=== PATIENT | male | born 1980 | race Hispanic/Latino ===

== ENCOUNTER 2022-08-30 17:11 | Emergency (ER) | payer OTHER ==
[~2022-08-30] VITALS: Ht 167.6 cm; Wt 82.6 kg
[2022-08-30 17:20] VITALS: BP 130/93
[2022-08-30] MEDS ORDERED: FLUORESCEIN SODIUM 1 STRIP STRIP OP SCH (20:00)
[2022-08-30] MEDS ORDERED: TETRACAINE HCL 0.5% 15 ML OPHTH SOLN OP SCH (20:00)
[2022-08-30] MEDS ORDERED: TETRACAINE HCL 0.5% 4 ML OPHTH SOLN ONE (20:04)
[2022-08-30] MEDS ORDERED: DIPH,PERTUSS(ACELL),TET VAC/PF 0.5 ML VIAL IM ONE (20:30)
[2022-08-30] MEDS ORDERED: IBUP-1493 PO (22:01)
[2022-08-30] MEDS ORDERED: POLY10DR22 OP (22:01)
[2022-08-30] MEDS ORDERED: IBUPROFEN 800 MG TAB PO ONE (22:30)
[2022-08-30] MEDS ORDERED: TETANUS/DIPHTHERIA TOXOID [ADULT] 0.5 ML VIAL IM ONE (22:30)
== END 2022-08-30 22:34 | disposition home or self-care (01) ==
LOC: EDH 17:11
DX: S05.02XA Injury of conjunctiva and corneal abrasion without foreign body, left eye, initial encounter (principal); H11.002 Unspecified pterygium of left eye; X58.XXXA Exposure to other specified factors, initial encounter; Y93.89 Activity, other specified; Y92.89 Other specified places as the place of occurrence of the external cause; Y99.8 Other external cause status
CPT/HCPCS: 70480; 90471; 90714; 90715

== ENCOUNTER 2023-08-17 16:01 | Emergency (ER) | payer OTHER ==
[~2023-08-17] VITALS: Ht 162.6 cm; Wt 81.6 kg
[~2023-08-17 16:01] MED LIST: IBUP-1493 PO; POLY10DR22 OP
[2023-08-17 16:22] LABS: BASOPHILS # (AUTO) 0.03 K/uL (0.00-0.20); BASOPHILS % (AUTO) 0.4 % (0.0-5.0); EOSINOPHILS # (AUTO) 0.13 K/uL (0.00-0.70); EOSINOPHILS % (AUTO) 1.7 % (0.0-8.0); HEMATOCRIT 45.3 % (42-54); IMMATURE GRANULOCYTE ABSOLUTE 0.02 K/uL (0-1); LYMPHOCYTES # (AUTO) 3.2 K/uL (1.0-4.8); LYMPHOCYTES % (AUTO) 42.5 % (21.0-51.0); MEAN CORPUSCULAR HEMOGLOBIN 29.5 pg (27.0-33.0); MEAN CORPUSCULAR HGB CONC 34.7 g/dL (32.0-36.0); MEAN CORPUSCULAR VOLUME 85.2 fL (79-99); MONOCYTES # (AUTO) 0.6 K/uL (0.1-1.0); NEUTROPHILS # (AUTO) 3.6 K/uL (1.8-7.7); NEUTROPHILS % (AUTO) 47.1 % (40.0-77.0); PLATELET COUNT (AUTO) 216 K/uL (130-400); RED BLOOD CELL COUNT(AUTO) 5.32 MIL/uL (4.50-6.20); RED CELL DISTRIBUTION WIDTH 12.7 % (11.0-15.5); WHITE BLOOD COUNT (AUTO) 7.6 K/uL (4.8-10.8)
[2023-08-17 16:34] LABS: CREATININE 1.1 mg/dL (0.5-1.5); POTASSIUM 3.6 mmol/L (3.5-5.1)
[2023-08-17 16:41] LABS: ALBUMIN 3.8 g/dL (3.5-5.0); BILIRUBIN,TOTAL 0.5 mg/dL (0.2-1.0); TOTAL PROTEIN, SERUM 7.6 g/dL (6.0-8.3)
[2023-08-17] MEDS ORDERED: IBUP-2070 PO (21:54)
[2023-08-17 22:00] VITALS: BP 128/78; PULSE 88; RESP 18; O2SAT 99
[2023-08-17] MEDS ORDERED: IBUPROFEN 800 MG TAB PO STA (22:16)
== END 2023-08-17 22:22 | disposition home or self-care (01) ==
LOC: EDH 16:01
DX: M79.602 Pain in left arm (principal); M79.18 Myalgia, other site; Z79.899 Other long term (current) drug therapy
CPT/HCPCS: 36415; 71045; 80053; 82550; 84484; 85025; 93005

== ENCOUNTER 2025-04-07 14:52 | Emergency (ER) | payer OTHER ==
[~2025-04-07] VITALS: Ht 162.6 cm; Wt 77.1 kg
[~2025-04-07 14:52] MED LIST changes: +IBUP-2070 PO
[2025-04-07 14:53] VITALS: BP 135/74; PULSE 72; RESP 16; TEMP 98.2
--- NOTE | 2025-04-07 14:58 | ERN ---
ED Note History of Present Illness Stated Complaint: LACERATION Chief Complaint: Laceration/Avulsion Time Seen by MD: 14:54 Dictation: 44-YEAR-OLD MALE STATES HE WAS WORKING NEAR A CAR WHEN A MIRROR BROKE AND IT CUT HIS DORSUM RIGHT HAND1 HOUR PRIOR TO ARRIVAL. HE WRAPPED IT WITH A PRESSURE DRESSING LAST TETANUS SHOT IS UNKNOWN. NO PRIMARY CARE DOCTOR NO ALLERGIES HE HAS NOT TAKEN ANYTHING PRIOR TO ARRIVAL FOR PAIN. Allergies: Coded Allergies: No Known Allergies (Unverified Allergy, Unknown, 08/30/22) Home Meds Active Scripts Ibuprofen (Ibuprofen 800 mg Tab) 800 Mg Tab, 800 MG PO Q8H PRN for fever or pain, #30 TAB 0 Refills Prov:NEGRITO LENTZ NP 04/07/25 Cephalexin (Cephalexin) 500 Mg Tablet, 1 TAB PO TID for 10 Days, #30 TAB 0 Refills Prov:NEGRITO LENTZ NP 04/07/25 Mupirocin (Bactroban 2% Oint) 2 % Oint, 1 APPL TP TID for 5 Days, #15 GM 0 Refills apply to affected area(s) Prov:NEGRITO LENTZ NP 04/07/25 Ibuprofen (Ibuprofen) 600 Mg Tablet, 600 MG PO Q6H PRN for PAIN, #20 TAB Prov:RAMIRO GRIFFITHS MD 08/17/23 Ibuprofen (Motrin/Advil) 800 Mg Tab, 800 MG PO TID, #30 TAB Prov:PHILOMENA CODY MD 08/30/22 Polymyxin B Sulf/Trimethoprim (Polytrim Eye Drops) 10 Ml Drops, 2 DROP OP QID, #10 ML Prov:PHILOMENA CODY MD 08/30/22 Past Medical History Past Medical History: No Pertinent History Surgical History: None Family History: Negative Social History: Negative, Lives with family RN Note Reviewed/Agreed w/PFSH: Yes Review of System Dictation CONSTITUTIONAL: NEGATIVE EXCEPT FOR HPI HEAD/FACE: NEGATIVE EXCEPT FOR HPI EENT: NEGATIVE EXCEPT FOR HPI RESPIRATORY: NEGATIVE EXCEPT FOR HPI GASTROINTESTINAL/ABDOMINAL: NEGATIVE EXCEPT FOR HPI GENITOURINARY: NEGATIVE EXCEPT FOR HPI MUSCULOSKELETAL: NEGATIVE EXCEPT FOR HPI INTEGUMENTARY: NEGATIVE EXCEPT FOR HPI LACERATION TO DORSUM LEFT HAND NEUROLOGICAL/PSYCH: NEGATIVE EXCEPT FOR HPI HEMATOLOGIC/LYMPHATIC: NEGATIVE EXCEPT FOR HPI ALL SYSTEMS NEGATIVE, EXCEPT NOTED ABOVE. 13 POINT REVIEW OF SYSTEMS ASSESSED AND ALL NEGATIVE EXCEPT FOR ABOVE. Initial Vital Sign VS Vital Signs Date Time Temp Pulse Resp B/P (MAP) Pulse Ox O2 Delivery O2 Flow Rate FiO2 04/07/25 14:53 98.2 72 16 135/74 97 Room Air Physical Exam Dictation VITAL SIGNS REVIEWED GENERAL APPEARANCE: ALERT, ORIENTED X 3, NO ACUTE DISTRESS, WELL DEVELOPED, NOURISHED. HEAD AND FACE: NON-TRAUMATIC. EYES: PERRL, PINK CONJUNCTIVAS, EYELID NO TRAUMA, ANTERIOR CHAMBER WITH ARCUS SENILIS. EARS: PINNAS INTACT AND NO SIGNS OF TRAUMA OR ERYTHEMA EAR CANALS CLEAR AND NO DISCHARGE TM NO ERYTHEMA NOSE: NO DISCHARGE, NO BLEEDING. OROPHARYNX: MOUTH NORMAL, TONGUE PINK, PHARYNX CLEAR,NO ERYTHEMA, TONSILS NO EXUDATES, NO ABSCESSES NOTED, MUCOUS MEMBRANE MOIST NECK: SUPPLE, NON-TENDER, NO THYROMEGALY, NO MASSES, NO JVD, NO BRUITS BREAST:DEFERRED CHEST:NO TENDERNESS, NO CREPITUS, NO PARADOXICAL MOVEMENT, NO RETRACTIONS LUNGS:CLEAR, WELL-VENTILATED, SYMMETRIC, NO RALES, NO WHEEZING, NO RHONCHI, NO STRIDOR, GOOD BREATH SOUNDS BILATERALLY HEART: REGULAR RATE, REGULAR RHYTHM, NO MURMUR, NO GALLOPS VASCULAR: NO PERIPHERAL EDEMA, ABDOMEN: SOFT, POSITIVE BOWEL SOUNDS, NONDISTENDED, NO GUARDING, NONTENDER, NO REBOUND, NO MASSES NO HEPATOMEGALY, NO SPLENOMEGALY, NO CHATTERJEE'S SIGN, NO HERNIAS. RECTAL: DEFERRED GENITAL: DEFERRED NEUROLOGICAL: NORMAL SPEECH, MOTOR FUNCTION INTACT, SENSORY FUNCTION INTACT MUSCULOSKELETAL: NECK NONTENDER, FULL RANGE OF MOTION, BACK NONTENDER, FULL RANGE OF MOTION, EXTREMITIES: NONTENDER, FULL RANGE OF MOTION SKIN: COLOR PINK, three skin avulsions without repair possible to dorsum of right hand. Each avulsion approximately 1 x 1 cm no active bleeding neurovascular CMS intact to right hand LYMPHATIC: DEFERRED Results (Laboratory/Radiology) Labs Reviewed?: Yes ED Course ED Course Orders Procedure Category Date Status Time Ibuprofen 800 Mg Tab PHA 04/07/25 Complete (Motrin) 15:00 Tetanus,Diphtheria PHA 04/07/25 Complete Tox [Adult] (Diphther 15:00 Neomy PHA 04/07/25 Complete Sulf/Bacitra/Polymyxin 15:00 Lidocaine Hcl 1% 20ml PHA 04/07/25 Complete Vial (Lidocaine Hc 14:55 Current Medications Medications (Trade) Dose Ordered Sig/[place] Route PRN Reason Start Time Stop Time Status Last Admin Dose Admin Ibuprofen (moTRIN) 800 mg ONCE ONCE PO 04/07/25 15:00 04/07/25 15:01 DC 04/07/25 15:58 Lidocaine HCl (Lidocaine HCl 1% 20ml Vial) 10 ml ONCE STAT INJ 04/07/25 14:55 04/07/25 14:59 DC 04/07/25 15:58 Neomycin/ Polymyxin/ Bacitracin (Triple Antibiotic Ointment) 1 appl ONCE ONCE TP 04/07/25 15:00 04/07/25 15:01 DC 04/07/25 16:02 Tetanus/ Diphtheria Toxoids Adsorbed (DiphthERIA-teTANUS TOXOID [ADULT]/ DECAVAC) 0.5 ml ONCE ONCE IM 04/07/25 15:00 04/07/25 15:01 DC 04/07/25 16:01 Vital Signs Date Time Temp Pulse Resp B/P (MAP) Pulse Ox O2 Delivery O2 Flow Rate FiO2 04/07/25 14:53 98.2 72 16 135/74 97 Room Air Medical Decision Making [facility] 1542/medical decision-making based on tetanus update and pain management. Patient has three small skin avulsions to dorsum of right hand with no repairs possible. Patient given information on wound healing by secondary intention We will be told to follow up with his primary care doctor. Wound care instructions given DX & DISP Disposition: Discharge Departure Impression: Primary Impression: Avulsion of skin of right hand Condition: Stable Scripts Ibuprofen (Ibuprofen 800 mg Tab) 800 Mg Tab 800 MG PO Q8H PRN for fever or pain, #30 TAB 0 Refills Prov: NEGRITO LENTZ NP 04/07/25 Cephalexin (Cephalexin) 500 Mg Tablet 1 TAB PO TID for 10 Days, #30 TAB 0 Refills Prov: NEGRITO LENTZ NP 04/07/25 Mupirocin (Bactroban 2% Oint) 2 % Oint 1 APPL TP TID for 5 Days, #15 GM 0 Refills apply to affected area(s) Prov: NEGRITO LENTZ NP 04/07/25 Additional Instructions: Follow-up with primary care provider in 1 to 2 days. Take medications as directed here in the emergency room. Okay to continue home medications unless o therwise discussed during your visit in the emergency room today. Return to your nearest emergency room if symptoms worsen or if there is no improvement. Call 911 if you need immediate assistance. Take Tylenol or Motrin [id number] as needed and if no contraindications are present. Increase oral hydration. A wound culture or urine culture was ordered here in the emergency room department please follow-up with primary care provider and advise them to get repeat ports from our facility. If you had any Wilberto wrap/splints that were applied here, please do not remove them until you see your primary care or specialty. Wash hand with soap and water well and then dry. Apply antibiotic ointment3 times a day for five days with dressing. Follow up with the your primary care doctor. Referrals: NONE (PCP) Time of Disposition: 15:41 I have reviewed the case, and I agree with, Diagnosis and Plan I performed a substantive portion of the visit. I have reviewed and personally made and approve the management plan that is documented in the notes by myself with MARQUISE/resident. I acknowledged full responsibility for the patient's management plan. NEGRITO LENTZ NP Apr 07, 2025 14:58 ALEX BHATT DO Apr 08, 2025 08:29
[2025-04-07] MEDS ORDERED: MUPI22O TP (15:42)
[2025-04-07] MEDS ORDERED: IBUP-2077 PO (15:42)
[2025-04-07] MEDS ORDERED: CEPH500T PO (15:42)
[2025-04-07] MEDS: LIDOCAINE HCL 1% 20 ML VIAL INJ STA (15:58)
[2025-04-07] MEDS: NEOMY SULF/BACITRA/POLYMYXIN B 1 EACH PACKET TP ONE (16:02)
== END 2025-04-07 16:38 | disposition home or self-care (01) ==
LOC: EDH 14:52
DX: S61.401A Unspecified open wound of right hand, initial encounter (principal); Z79.1 Long term (current) use of non-steroidal anti-inflammatories (NSAID); Z79.899 Other long term (current) drug therapy; W45.8XXA Other foreign body or object entering through skin, initial encounter; Y93.89 Activity, other specified; Y92.89 Other specified places as the place of occurrence of the external cause; Y99.8 Other external cause status
CPT/HCPCS: 90471; 90714; 99283